=== PATIENT | male | born 1995 | race American Indian/Alaskan Native ===

== ENCOUNTER 2019-03-31 14:34 | Emergency (ER) | payer BC ==
[2019-03-31 14:47] VITALS: BP 161/101
[2019-03-31] MEDS ORDERED: ACETAMINOPHEN 500 MG TAB PO ONE (18:48)
[2019-03-31] MEDS ORDERED: IBUPROFEN 600 MG TAB PO ONE (18:48)
[2019-03-31] MEDS ORDERED: ONDANSETRON 4 MG/2 ML INJ IV ONE (18:48)
[2019-03-31] MEDS ORDERED: IPRATROPIUM/ALBUTEROL SULFATE 3 ML AMPUL.NEB IH ONE (18:48)
[2019-03-31] MEDS ORDERED: methylPREDNISolone Sod Succinate 125 MG/2 ML INJ IV ONE (18:48)
[2019-03-31] MEDS ORDERED: SODIUM CHLORIDE 0.9% 1000 ML 1,000 ML IV ONE (18:49)
[2019-03-31 19:30] LABS: Basophils # (Auto) 0.1 K/mm3 (0.0-0.1); Basophils % (Auto) 1.2 % (0.0-1.8); Eosinophils # (Auto) 0.4 K/mm3 (0.0-0.4); Eosinophils % (Auto) 5.2 % (0.0-4.3); Hematocrit 47.5 % (35.5-45.6); Lymphocytes # (Auto) 2.1 K/mm3 (1.2-5.4); Lymphocytes % (Auto) 24.7 % (13.4-35.0); Mean Corpuscular HGB Conc 34 % (32-34); Mean Corpuscular Volume 86 fl (84-94); Monocytes # (Auto) 0.8 K/mm3 (0.0-0.8); Monocytes % (Auto) 9.3 % (0.0-7.3); Platelet Count 235 K/mm3 (140-440); Red Cell Distribution Width 13.5 % (13.2-15.2)
[2019-03-31 19:53] LABS: Alanine Aminotransferase 20 units/L (7-56); BUN/Creatinine Ratio 10; Blood Urea Nitrogen 9 mg/dL (9-20); Calcium 9.1 mg/dL (8.4-10.2); Hemolysis Index 17
--- NOTE | 2019-03-31 19:55 | XRay Report ---
CHEST 2 VIEWS INDICATION / CLINICAL INFORMATION: cough, fever. COMPARISON: None available. FINDINGS: SUPPORT DEVICES: None. HEART / MEDIASTINUM: No significant abnormality. LUNGS / PLEURA: No significant pulmonary or pleural abnormality. No pneumothorax. ADDITIONAL FINDINGS: No significant additional findings. IMPRESSION: 1. No acute findings. Signer Name: Korey Machado MD Signed: 03/31/2019 7:51 PM Workstation Name: [id number]
--- NOTE | 2019-03-31 21:39 | Emergency Department Report ---
- General Chief Complaint: Upper Respiratory Infection Stated Complaint: SOB Source: patient Mode of arrival: Ambulatory Limitations: No Limitations - History of Present Illness Initial Comments: Patient is a 24-year-old male with no past medical history who presents to the ED record. Of acute onset persistent nasal and sinus congestion, frontal sinus pressure, headache, dizziness, lightheadedness, nausea, vomiting and dry cough for the last 2 days. Patient also complains of severely diffuse body aches and pains and lack of appetite. Patient states that he tried to take [id number] medications with no relief. Patient denies chest pain, shortness of breath, abdominal pain, diarrhea, dizziness, dysuria, testicular pain, syncope, seizures, change in vision or palpitations. Patient states that no one else at home also had similar symptoms. MD Complaint: fever, cough, sore throat, rhinorrhea, nasal congestion, sinus pain -: Sudden, days(s) (4) Severity: severe Severity scale (0 -10): 7 Quality: sharp, aching Consistency: constant Improves With: nothing Worsens With: nothing Associated Symptoms: denies other symptoms, fever, chills, myalgias, headache, rhinorrhea, nasal congestion, sore throat, cough, nausea, vomiting. denies: chest pain, shortness of breath, abdominal pain, diarrhea, dysuria, rash, right sweats, weight loss, hoarseness Treatments Prior to Arrival: none - Related Data Previous Rx's Medication Instructions Recorded Last Taken Type methylPREDNISolone [Medrol] 4 mg PO QAM #1 tab.ds.pk 03/23/18 Unknown Rx Dicyclomine [Bentyl] 10 mg PO QID PRN #40 capsule 01/13/19 Unknown Rx Naproxen 500 mg PO BID PRN #30 tablet 01/13/19 Unknown Rx Ondansetron [Zofran Odt] 4 mg PO Q8HR PRN #12 tab.rapdis 01/13/19 Unknown Rx Amoxicillin/Potassium Clav 1 each PO Q12H #20 tablet 03/31/19 Unknown Rx [Augmentin 875-125 Tablet] Benzonatate [Tessalon Perles] 100 mg PO Q8HR #30 capsule 03/31/19 Unknown Rx Cetirizine HCl [Zyrtec 10mg tab] 10 mg PO DAILY #30 tablet 03/31/19 Unknown Rx Ibuprofen [Motrin] 800 mg PO Q8HR PRN #20 tablet 03/31/19 Unknown Rx Ondansetron [Zofran Odt] 4 mg PO Q6HR PRN #15 tab.rapdis 03/31/19 Unknown Rx methylPREDNISolone [Medrol 4MG 4 mg PO DAILY #21 tab.ds.pk 03/31/19 Unknown Rx DOSEPAK (21 tabs)] Allergies Allergy/AdvReac Type Severity Reaction Status Date / Time No Known Allergies Allergy Unverified 10/09/15 12:38 ED Review of Systems ROS: Stated complaint: SOB Other details as noted in HPI Constitutional: chills, fever, malaise Eyes: denies: eye pain, eye discharge, vision change ENT: congestion, other (sinus pressure and headache). denies: ear pain, throat pain Respiratory: cough, wheezing. denies: shortness of breath Cardiovascular: denies: chest pain, palpitations Endocrine: no symptoms reported Gastrointestinal: nausea, vomiting. denies: abdominal pain, diarrhea, hematemesis, hematochezia Genitourinary: denies: urgency, dysuria Musculoskeletal: back pain, arthralgia, myalgia. denies: joint swelling Skin: denies: rash, lesions Neurological: headache. denies: weakness, paresthesias Psychiatric: denies: anxiety, depression Hematological/Lymphatic: denies: easy bleeding, easy bruising ED Past Medical Hx - Past Medical History Previous Medical History?: No - Surgical History Past Surgical History?: Yes Additional Surgical History: stomach surgery as an infant - Social History Smoking Status: Current Every Day Smoker Substance Use Type: None - Medications Home Medications: Home Medications Medication Instructions Recorded Confirmed Last Taken Type methylPREDNISolone [Medrol] 4 mg PO QAM #1 tab.ds.pk 03/23/18 Unknown Rx Dicyclomine [Bentyl] 10 mg PO QID PRN #40 capsule 01/13/19 Unknown Rx Naproxen 500 mg PO BID PRN #30 tablet 01/13/19 Unknown Rx Ondansetron [Zofran Odt] 4 mg PO Q8HR PRN #12 tab.rapdis 01/13/19 Unknown Rx Amoxicillin/Potassium Clav 1 each PO Q12H #20 tablet 03/31/19 Unknown Rx [Augmentin 875-125 Tablet] Benzonatate [Tessalon Perles] 100 mg PO Q8HR #30 capsule 03/31/19 Unknown Rx Cetirizine HCl [Zyrtec 10mg tab] 10 mg PO DAILY #30 tablet 03/31/19 Unknown Rx Ibuprofen [Motrin] 800 mg PO Q8HR PRN #20 tablet 03/31/19 Unknown Rx Ondansetron [Zofran Odt] 4 mg PO Q6HR PRN #15 tab.rapdis 03/31/19 Unknown Rx methylPREDNISolone [Medrol 4MG 4 mg PO DAILY #21 tab.ds.pk 03/31/19 Unknown Rx DOSEPAK (21 tabs)] ED Physical Exam - General Limitations: No Limitations General appearance: alert, in no apparent distress - Head Head exam: Present: atraumatic, normocephalic, normal inspection - Eye Eye exam: Present: normal appearance, PERRL, EOMI Pupils: Present: normal accommodation - ENT ENT exam: Present: normal orophraynx, mucous membranes moist, TM's normal bilaterally, normal external ear exam, other (grossly congested nasal passages; palpable severe frontal sinus tenderness) - Neck Neck exam: Present: normal inspection, full ROM, lymphadenopathy - Respiratory Respiratory exam: Present: normal lung sounds bilaterally, wheezes (mildly diffuse coarse wheezes throughout). Absent: respiratory distress, rales, rhonchi, chest wall tenderness, accessory muscle use, decreased breath sounds, prolonged expiratory - Cardiovascular Cardiovascular Exam: Present: normal rhythm, tachycardia, normal heart sounds. Absent: systolic murmur, diastolic murmur, rubs, gallop - GI/Abdominal GI/Abdominal exam: Present: soft, normal bowel sounds. Absent: tenderness, guarding, rebound, hyperactive bowel sounds, hypoactive bowel sounds - Extremities Exam Extremities exam: Present: normal inspection, full ROM, normal capillary refill - Back Exam Back exam: Present: normal inspection, full ROM. Absent: muscle spasm, paraspinal tenderness - Neurological Exam Neurological exam: Present: alert, oriented X3, CN II-XII intact, normal gait, reflexes normal - Psychiatric Psychiatric exam: Present: normal affect, normal mood - Skin Skin exam: Present: warm, dry, intact, normal color. Absent: rash ED Course Vital Signs 03/31/19 03/31/19 03/31/19 14:45 19:35 19:36 Temperature 99 F Pulse Rate 117 H Respiratory 20 18 18 Rate Blood Pressure 161/101 O2 Sat by Pulse 93 Oximetry ED Medical Decision Making - Lab Data Result diagrams: 03/31/19 19:18 03/31/19 19:18 - Radiology Data Radiology results: report reviewed, image reviewed Chest x-ray shows no acute cardiopulmonary abnormalities or pneumonitis. - Medical Decision Making This is a 24-year-old male who presented to the ED with complaint of acute onset persistent nasal and sinus congestion, frontal sinus pressure and headache, some fairly diffuse body aches and pains, dry cough with nausea and vomiting for the last 2 days. In the ED, patient is alert and oriented 3 and is not in distress. Chest x-ray shows no acute cardiopulmonary abnormalities or pneumonitis. Lab test results were reviewed and are all nonactionable including rapid influenza tests. Patient was treated for pain, also treated for nausea and vomiting and also received DuoNeb treatment as well as Solu-Medrol. On reevaluation, patient felt better, walking around in the ED and asking to be discharged home now that he is feeling better. Patient was discharged home on medications and advised to follow-up with his primary care physician in 5-7 days for reevaluation or return to the ED immediately if symptoms get worse. - Differential Diagnosis Sinusitis; bronchitis; URI; Flu; Pneumonia Critical care attestation.: If time is entered above; I have spent that time in minutes in the direct care of this critically ill patient, excluding procedure time. ED Disposition Clinical Impression: Acute upper respiratory infection, Nausea and vomiting in adult Acute frontal sinusitis Qualifiers: Recurrence: non-recurrent Qualified Code(s): J01.10 - Acute frontal sinusitis, unspecified Acute bronchitis Qualifiers: Bronchitis organism: other organism Qualified Code(s): J20.8 - Acute bronchitis due to other specified organisms Disposition: DC-01 TO HOME OR SELFCARE Is pt being admited?: No Does the pt Need Aspirin: No Condition: Stable Instructions: Acute Bronchitis (ED), Acute Bacterial Rhinosinusitis (ED), Upper Respiratory Infection (ED), Acute Nausea and Vomiting (ED) Additional Instructions: Take medications with food, drink plenty of fluids and follow-up with her primary care physician in 5-7 days for reevaluation. Return to ED immediately if symptoms get worse. Prescriptions: Amoxicillin/Potassium Clav [Augmentin 875-125 Tablet] 1 each PO Q12H #20 tablet methylPREDNISolone [Medrol 4MG DOSEPAK (21 tabs)] 4 mg PO DAILY #21 tab.ds.pk Ibuprofen [Motrin] 800 mg PO Q8HR PRN #20 tablet PRN Reason: Pain , Severe (7-10) Benzonatate [Tessalon Perles] 100 mg PO Q8HR #30 capsule Ondansetron [Zofran Odt] 4 mg PO Q6HR PRN #15 tab.rapdis PRN Reason: Nausea Cetirizine HCl [Zyrtec 10mg tab] 10 mg PO DAILY #30 tablet Referrals: TIERA ONTIVEROS MD [Staff Physician] - 7-10 days Forms: Work/School Release Form(ED) Time of Disposition: 21:36 Print Language: MALTESE
== END 2019-03-31 21:50 | disposition home or self-care (01) ==
LOC: ED 14:34
DX: J06.9 Acute upper respiratory infection, unspecified (principal); R11.2 Nausea with vomiting, unspecified; J01.10 Acute frontal sinusitis, unspecified; J20.9 Acute bronchitis, unspecified; F17.200 Nicotine dependence, unspecified, uncomplicated; Z98.890 Other specified postprocedural states; Z79.1 Long term (current) use of non-steroidal anti-inflammatories (NSAID); Z79.2 Long term (current) use of antibiotics; Z79.899 Other long term (current) drug therapy
CPT/HCPCS: 36415; 71046; 80053; 85025; 87400; 94640; 96361; 96374; 96375; 99284; J2405; J2930; J7030

== ENCOUNTER 2019-08-29 21:54 | Emergency (ER) | payer BC, OTHER ==
[2019-08-29 22:23] LABS: Bilirubin,Urine NEG (Negative); Blood,Urine NEG (Negative); Color,Urine Yellow (Yellow); Mucus,Urine FEW /HPF; Protein,Urine <15 mg/dL mg/dL (Negative); Urobilinogen,Urine < 2.0 mg/dL (<2.0); WBC,Urine < 1.0 /HPF (0.0-6.0)
[2019-08-30] MEDS ORDERED: predniSONE 20 MG TAB PO ONE (01:25)
[2019-08-30] MEDS ORDERED: ACETAMINOPHEN 500 MG TAB PO ONE (01:25)
--- NOTE | 2019-08-30 02:00 | Emergency Department Report ---
ED Extremity Problem HPI - General Chief complaint: Urogenital-Male Stated complaint: GENITAL ITCHING Source: patient Mode of arrival: Ambulatory Limitations: No Limitations - History of Present Illness Initial comments: Patient is a 24-year-old -[place] male with no past medical history who presented to the ED with complaint of acute onset persistent severe left should er pain that radiates diffusely to the left for the last 2 weeks. 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 Patient also complains of itchy painful rash in the left inguinal area for the last 4 days. Patient denies fever, chills, nausea, vomiting, testicular pain, traumatic injury, fall, neck pain, chest pain, shortness of breath, abdominal pain, low back pain, numbness and tingling or weakness of left arm. MD Complaint: extremity pain (left shoulder and arm pain), other (right groin itchy rash) -: Sudden, week(s) (2) Location: left, upper extremity (shoulder and arm) History of Same: No -: Yes arthralgia, No fever, No associated dyspnea Severity scale (0 -10): 5 Quality: aching, sharp Consistency: constant Improves with: nothing Worsens with: weight bearing, exertion, palpation Associated Symptoms: denies other symptoms, arthralgias. denies: chest pain, shortness of breath, fever, myalgias, rash - Related Data Previous Rx's Medication Instructions Recorded Last Taken Type methylPREDNISolone [Medrol] 4 mg PO QAM #1 tab.ds.pk 03/23/18 Unknown Rx Dicyclomine [Bentyl] 10 mg PO QID PRN #40 capsule 01/13/19 Unknown Rx Ondansetron [Zofran Odt] 4 mg PO Q8HR PRN #12 tab.rapdis 01/13/19 Unknown Rx Amoxicillin/Potassium Clav 1 each PO Q12H #20 tablet 03/31/19 Unknown Rx [Augmentin 875-125 Tablet] Benzonatate [Tessalon Perles] 100 mg PO Q8HR #30 capsule 03/31/19 Unknown Rx Cetirizine HCl [Zyrtec 10mg tab] 10 mg PO DAILY #30 tablet 03/31/19 Unknown Rx Ibuprofen [Motrin] 800 mg PO Q8HR PRN #20 tablet 03/31/19 Unknown Rx Ondansetron [Zofran Odt] 4 mg PO Q6HR PRN #15 tab.rapdis 03/31/19 Unknown Rx methylPREDNISolone [Medrol 4MG 4 mg PO DAILY #21 tab.ds.pk 03/31/19 Unknown Rx DOSEPAK (21 tabs)] Naproxen 500 mg PO BID PRN #30 tablet 08/30/19 Unknown Rx Terbinafine HCl [Lamisil At 1% 10 applic TP BID #1 tube 08/30/19 Unknown Rx CREAM] cephALEXin [Keflex] 500 mg PO Q8HR #30 cap 08/30/19 Unknown Rx predniSONE [Deltasone] 40 mg PO QDAY #10 tab 08/30/19 Unknown Rx Allergies Allergy/AdvReac Type Severity Reaction Status Date / Time No Known Allergies Allergy Unverified 10/09/15 12:38 ED Review of Systems ROS: Stated complaint: GENITAL ITCHING Other details as noted in HPI Constitutional: denies: chills, fever Eyes: denies: eye pain, eye discharge, vision change ENT: denies: ear pain, throat pain Respiratory: denies: cough, shortness of breath, wheezing Cardiovascular: denies: chest pain, palpitations Endocrine: no symptoms reported Gastrointestinal: denies: abdominal pain, nausea, diarrhea Genitourinary: denies: urgency, dysuria Musculoskeletal: arthralgia (Right shoulder and arm pain). denies: back pain, joint swelling Skin: rash (Painful itchy bleeding rash in the right inguinal area). denies: lesions Neurological: denies: headache, weakness, paresthesias Psychiatric: denies: anxiety, depression Hematological/Lymphatic: denies: easy bleeding, easy bruising ED Past Medical Hx - Past Medical History Previous Medical History?: No - Surgical History Past Surgical History?: No Additional Surgical History: stomach surgery as an - Social History Smoking Status: Current Every Day Smoker Substance Use Type: None - Medications Home Medications: Home Medications Medication Instructions Recorded Confirmed Last Taken Type methylPREDNISolone [Medrol] 4 mg PO QAM #1 tab.ds.pk 03/23/18 Unknown Rx Dicyclomine [Bentyl] 10 mg PO QID PRN #40 capsule 01/13/19 Unknown Rx Ondansetron [Zofran Odt] 4 mg PO Q8HR PRN #12 tab.rapdis 01/13/19 Unknown Rx Amoxicillin/Potassium Clav 1 each PO Q12H #20 tablet 03/31/19 Unknown Rx [Augmentin 875-125 Tablet] Benzonatate [Tessalon Perles] 100 mg PO Q8HR #30 capsule 03/31/19 Unknown Rx Cetirizine HCl [Zyrtec 10mg tab] 10 mg PO DAILY #30 tablet 03/31/19 Unknown Rx Ibuprofen [Motrin] 800 mg PO Q8HR PRN #20 tablet 03/31/19 Unknown Rx Ondansetron [Zofran Odt] 4 mg PO Q6HR PRN #15 tab.rapdis 03/31/19 Unknown Rx methylPREDNISolone [Medrol 4MG 4 mg PO DAILY #21 tab.ds.pk 03/31/19 Unknown Rx DOSEPAK (21 tabs)] Naproxen 500 mg PO BID PRN #30 tablet 08/30/19 Unknown Rx Terbinafine HCl [Lamisil At 1% 10 applic TP BID #1 tube 08/30/19 Unknown Rx CREAM] cephALEXin [Keflex] 500 mg PO Q8HR #30 cap 08/30/19 Unknown Rx predniSONE [Deltasone] 40 mg PO QDAY #10 tab 08/30/19 Unknown Rx ED Physical Exam - General Limitations: No Limitations General appearance: alert, in no apparent distress - Head Head exam: Present: atraumatic, normocephalic, normal inspection - Eye Eye exam: Present: normal appearance, PERRL, EOMI Pupils: Present: normal accommodation - ENT ENT exam: Present: normal exam, normal orophraynx, mucous membranes moist, TM's normal bilaterally, normal external ear exam - Neck Neck exam: Present: normal inspection, full ROM. Absent: tenderness - Respiratory Respiratory exam: Present: normal lung sounds bilaterally. Absent: respiratory distress, wheezes, rales, chest wall tenderness, accessory muscle use, decreased breath sounds - Cardiovascular Cardiovascular Exam: Present: regular rate, normal rhythm, normal heart sounds. Absent: systolic murmur, diastolic murmur, rubs, gallop - GI/Abdominal GI/Abdominal exam: Present: soft, normal bowel sounds. Absent: tenderness - Extremities Exam Extremities exam: Present: normal inspection, tenderness (Palpable left shoulder tenderness with limited range of motion due to pain), normal capillary refill. Absent: full ROM (Left shoulder limited range of motion due to reproducible pain) - Back Exam Back exam: Present: normal inspection, full ROM. Absent: tenderness, CVA tenderness (R), muscle spasm - Neurological Exam Neurological exam: Present: alert, oriented X3, CN II-XII intact, normal gait, reflexes normal - Psychiatric Psychiatric exam: Present: normal affect, normal mood - Skin Skin exam: Present: warm, dry, intact, normal color, rash (Mild erythematous dry scaly maculopapular rash on right inguinal area and right scrotum), erythema ED Course Vital Signs 08/29/19 22:00 Temperature 98.0 F Pulse Rate 98 H Respiratory 18 Rate Blood Pressure 178/108 O2 Sat by Pulse 96 Oximetry ED Medical Decision Making - Medical Decision Making This is a 24-year-old -[place] male with no past medical history who presented to the ED with complaint of acute onset persistent severe left shoulder pain that radiates diffusely to the left for the last 2 weeks. 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 Patient also complains of itchy painful rash in the left inguinal area for the last 4 days. In the ED, patient is alert and oriented x3 and is not in distress but appears to be in pain. Patient was treated for pain in the ED and discharged home on pain medications and was advised to follow-up with his primary care physician in 5 to 7 days for reevaluation. Patient requested for an STD testing but I advised the patient that the STD testing is not an emergency and therefore he needs to follow-up at the [facility] or [facility] health departments or any urgent care clinic for STD testing and treatment. Patient was advised to return to the ED immediately if symptoms get worse. - Differential Diagnosis Tendonitis; Muscle strain; Folliculitis; Tinea cruris Critical care attestation.: If time is entered above; I have spent that time in minutes in the direct care of this critically ill patient, excluding procedure time. ED Disposition Clinical Impression: Tendinitis of left shoulder, Tinea cruris, Acute folliculitis Muscle strain of left upper extremity Qualifiers: Encounter type: initial encounter Qualified Code(s): S46.912A - Strain of unspecified muscle, fascia and tendon at shoulder and upper arm level, left arm, initial encounter Disposition: DC-01 TO HOME OR SELFCARE Is pt being admited?: No Does the pt Need Aspirin: No Condition: Stable Instructions: Muscle Strain (ED), Folliculitis (ED), Jock Itch (ED), Tendinitis (ED) Additional Instructions: Take medication with food, drink plenty of fluids and follow-up with your primary care physician in 7 to 10 days for reevaluation. Return to the ED immediately if symptoms get worse. Prescriptions: predniSONE [Deltasone] 40 mg PO QDAY #10 tab cephALEXin [Keflex] 500 mg PO Q8HR #30 cap Terbinafine HCl [Lamisil At 1% CREAM] 10 applic TP BID #1 tube Naproxen 500 mg PO BID PRN #30 tablet PRN Reason: pain Referrals: [facility] [Provider Group] - 7-10 days Time of Disposition: 01:57 Print Language: BENGALI
== END 2019-08-30 02:17 | disposition home or self-care (01) ==
LOC: ED 21:54
DX: S46.912A Strain of unspecified muscle, fascia and tendon at shoulder and upper arm level, left arm, initial encounter (principal); M75.82 Other shoulder lesions, left shoulder; B35.6 Tinea cruris; L73.9 Follicular disorder, unspecified; F17.200 Nicotine dependence, unspecified, uncomplicated; Z98.890 Other specified postprocedural states; Z79.899 Other long term (current) drug therapy; X58.XXXA Exposure to other specified factors, initial encounter; Y93.89 Activity, other specified; Y92.89 Other specified places as the place of occurrence of the external cause; Y99.8 Other external cause status
CPT/HCPCS: 81001; 99283; J7512

== ENCOUNTER 2019-11-10 22:18 | Emergency (ER) | payer OTHER ==
--- NOTE | 2019-11-11 01:28 | Emergency Department Report ---
ED ENT HPI - General Chief complaint: Earache Stated complaint: HEARING LOSS LEFT EAR Time Seen by Provider: 11/11/19 00:07 Source: patient Mode of arrival: Ambulatory Limitations: No Limitations - History of Present Illness Initial comments: this 24-year-old male presents the ED complaining of = left ear pain and drainage x2 days. Patient states he woke up and noticed his left ear was draining and he was having pain from the ear. Patient states that he is also been having decreased hearing on the ear. Patient denies any trauma, recent swimming, recent illness, foreign object to the ear. He denies fever/chills/shortness of breath chest pain or any other symptoms. MD complaint: ear pain Location: L ear Severity: moderate Severity scale (0 -10): 7 Quality: aching Consistency: constant - Related Data Previous Rx's Medication Instructions Recorded Last Taken Type methylPREDNISolone [Medrol] 4 mg PO QAM #1 tab.ds.pk 03/23/18 Unknown Rx Dicyclomine [Bentyl] 10 mg PO QID PRN #40 capsule 01/13/19 Unknown Rx Ondansetron [Zofran Odt] 4 mg PO Q8HR PRN #12 tab.rapdis 01/13/19 Unknown Rx Benzonatate [Tessalon Perles] 100 mg PO Q8HR #30 capsule 03/31/19 Unknown Rx Cetirizine HCl [Zyrtec 10mg tab] 10 mg PO DAILY #30 tablet 03/31/19 Unknown Rx Ondansetron [Zofran Odt] 4 mg PO Q6HR PRN #15 tab.rapdis 03/31/19 Unknown Rx methylPREDNISolone [Medrol 4MG 4 mg PO DAILY #21 tab.ds.pk 03/31/19 Unknown Rx DOSEPAK (21 tabs)] Naproxen 500 mg PO BID PRN #30 tablet 08/30/19 Unknown Rx Terbinafine HCl [Lamisil At 1% 10 applic TP BID #1 tube 08/30/19 Unknown Rx CREAM] cephALEXin [Keflex] 500 mg PO Q8HR #30 cap 08/30/19 Unknown Rx predniSONE [Deltasone] 40 mg PO QDAY #10 tab 08/30/19 Unknown Rx Amoxicillin/Potassium Clav 1 each PO Q12H #20 tablet 11/11/19 Unknown Rx [Augmentin 875-125 Tablet] Ibuprofen [Motrin 800 MG tab] 800 mg PO Q8HR PRN #20 tablet 11/11/19 Unknown Rx Ofloxacin 0.3% [Floxin 0.3% Otic] 1 - 2 drops OT BID #1 bottle 11/11/19 Unknown Rx Allergies Allergy/AdvReac Type Severity Reaction Status Date / Time No Known Allergies Allergy Unverified 10/09/15 12:38 ED Dental HPI - General Chief complaint: Earache Stated complaint: HEARING LOSS LEFT EAR Time Seen by Provider: 11/11/19 00:07 Source: patient Mode of arrival: Ambulatory Limitations: No Limitations - Related Data Previous Rx's Medication Instructions Recorded Last Taken Type methylPREDNISolone [Medrol] 4 mg PO QAM #1 tab.ds.pk 03/23/18 Unknown Rx Dicyclomine [Bentyl] 10 mg PO QID PRN #40 capsule 01/13/19 Unknown Rx Ondansetron [Zofran Odt] 4 mg PO Q8HR PRN #12 tab.rapdis 01/13/19 Unknown Rx Benzonatate [Tessalon Perles] 100 mg PO Q8HR #30 capsule 03/31/19 Unknown Rx Cetirizine HCl [Zyrtec 10mg tab] 10 mg PO DAILY #30 tablet 03/31/19 Unknown Rx Ondansetron [Zofran Odt] 4 mg PO Q6HR PRN #15 tab.rapdis 03/31/19 Unknown Rx methylPREDNISolone [Medrol 4MG 4 mg PO DAILY #21 tab.ds.pk 03/31/19 Unknown Rx DOSEPAK (21 tabs)] Naproxen 500 mg PO BID PRN #30 tablet 08/30/19 Unknown Rx Terbinafine HCl [Lamisil At 1% 10 applic TP BID #1 tube 08/30/19 Unknown Rx CREAM] cephALEXin [Keflex] 500 mg PO Q8HR #30 cap 08/30/19 Unknown Rx predniSONE [Deltasone] 40 mg PO QDAY #10 tab 08/30/19 Unknown Rx Amoxicillin/Potassium Clav 1 each PO Q12H #20 tablet 11/11/19 Unknown Rx [Augmentin 875-125 Tablet] Ibuprofen [Motrin 800 MG tab] 800 mg PO Q8HR PRN #20 tablet 11/11/19 Unknown Rx Ofloxacin 0.3% [Floxin 0.3% Otic] 1 - 2 drops OT BID #1 bottle 11/11/19 Unknown Rx Allergies Allergy/AdvReac Type Severity Reaction Status Date / Time No Known Allergies Allergy Unverified 10/09/15 12:38 ED Review of Systems ROS: Stated complaint: HEARING LOSS LEFT EAR Other details as noted in HPI Comment: All other systems reviewed and negative ED Past Medical Hx - Past Medical History Previous Medical History?: No - Surgical History Past Surgical History?: No Additional Surgical History: stomach surgery as an infant - Social History Smoking Status: Current Every Day Smoker Substance Use Type: None - Medications Home Medications: Home Medications Medication Instructions Recorded Confirmed Last Taken Type methylPREDNISolone [Medrol] 4 mg PO QAM #1 tab.ds.pk 03/23/18 Unknown Rx Dicyclomine [Bentyl] 10 mg PO QID PRN #40 capsule 01/13/19 Unknown Rx Ondansetron [Zofran Odt] 4 mg PO Q8HR PRN #12 tab.rapdis 01/13/19 Unknown Rx Benzonatate [Tessalon Perles] 100 mg PO Q8HR #30 capsule 03/31/19 Unknown Rx Cetirizine HCl [Zyrtec 10mg tab] 10 mg PO DAILY #30 tablet 03/31/19 Unknown Rx Ondansetron [Zofran Odt] 4 mg PO Q6HR PRN #15 tab.rapdis 03/31/19 Unknown Rx methylPREDNISolone [Medrol 4MG 4 mg PO DAILY #21 tab.ds.pk 03/31/19 Unknown Rx DOSEPAK (21 tabs)] Naproxen 500 mg PO BID PRN #30 tablet 08/30/19 Unknown Rx Terbinafine HCl [Lamisil At 1% 10 applic TP BID #1 tube 08/30/19 Unknown Rx CREAM] cephALEXin [Keflex] 500 mg PO Q8HR #30 cap 08/30/19 Unknown Rx predniSONE [Deltasone] 40 mg PO QDAY #10 tab 08/30/19 Unknown Rx Amoxicillin/Potassium Clav 1 each PO Q12H #20 tablet 11/11/19 Unknown Rx [Augmentin 875-125 Tablet] Ibuprofen [Motrin 800 MG tab] 800 mg PO Q8HR PRN #20 tablet 11/11/19 Unknown Rx Ofloxacin 0.3% [Floxin 0.3% Otic] 1 - 2 drops OT BID #1 bottle 11/11/19 Unknown Rx ED Physical Exam - General Limitations: No Limitations General appearance: alert, in no apparent distress - Head Head exam: Present: atraumatic, normocephalic - Eye Eye exam: Present: normal appearance - ENT ENT exam: Present: mucous membranes moist - Expanded ENT Exam Expanded TM/Canal exam: Erythema: Left TM, Bulging: Left TM, Effusion: Left TM, Canal Discharge: Left TM, Canal Tenderness: Left TM Mouth exam: Present: normal external inspection Teeth exam: Present: normal inspection Throat exam: Positive: normal inspection - Neck Neck exam: Present: normal inspection - Respiratory Respiratory exam: Present: normal lung sounds bilaterally. Absent: respiratory distress - Cardiovascular Cardiovascular Exam: Present: regular rate, normal rhythm. Absent: systolic murmur, diastolic murmur, rubs, gallop - GI/Abdominal GI/Abdominal exam: Present: soft, normal bowel sounds - Rectal Rectal exam: Present: deferred - Extremities Exam Extremities exam: Present: normal inspection - Back Exam Back exam: Present: normal inspection - Neurological Exam Neurological exam: Present: alert, oriented X3 - Psychiatric Psychiatric exam: Present: normal affect, normal mood - Skin Skin exam: Present: warm, dry, intact, normal color. Absent: rash ED Course Vital Signs 11/10/19 22:27 Temperature 98.2 F Pulse Rate 72 Respiratory 18 Rate Blood Pressure 158/85 O2 Sat by Pulse 98 Oximetry ED Medical Decision Making - Medical Decision Making 24-year-old male presented with otitis media/otitis media and externa ED course: . I discussed all findings with the patient r. I discussed with the patient to take antibiotics as prescribed. I discussed to continue hydrating . I discussed follow-up with the primary care doctor There was no fever in the ED Vital signs are normalized, patient is in no acute distress or respiratory distress. Patient had an uneventful ED stay Critical care attestation.: If time is entered above; I have spent that time in minutes in the direct care of this critically ill patient, excluding procedure time. ED Disposition Clinical Impression: Otitis media Qualifiers: Otitis media type: suppurative Chronicity: acute Laterality: left Spontaneous tympanic membrane rupture: without spontaneous rupture Otitis externa Qualifiers: Otitis externa type: unspecified type Chronicity: acute Laterality: left Qualified Code(s): H60.502 - Unspecified acute noninfective otitis externa, left ear Disposition: DC- TO HOME OR SELFCARE Is pt being admited?: No Does the pt Need Aspirin: No Condition: Stable Instructions: Otitis Media (ED), Otitis Externa (ED) Additional Instructions: Make sure to follow up with the primary care physician as discussed. Take all your medications as you've been prescribed. If you have any worsening symptoms or develop new symptoms please return to ED immediately. Prescriptions: Amoxicillin/Potassium Clav [Augmentin 875-125 Tablet] 1 each PO Q12H #20 tablet Ofloxacin 0.3% [Floxin 0.3% Otic] 1 - 2 drops OT BID #1 bottle Ibuprofen [Motrin 800 MG tab] 800 mg PO Q8HR PRN #20 tablet PRN Reason: Pain , Severe (7-10) Referrals: PRIMARY CARE,MD [Primary Care Provider] - 3-5 Days [facility] [Outside] - 3-5 Days [facility] [Outside] - 3-5 Days Forms: Work/School Release Form(ED) Time of Disposition: 01:31
[2019-11-11 01:54] VITALS: BP 142/78
== END 2019-11-11 01:53 | disposition home or self-care (01) ==
LOC: ED 22:18
DX: H66.92 Otitis media, unspecified, left ear (principal); H60.92 Unspecified otitis externa, left ear; F17.200 Nicotine dependence, unspecified, uncomplicated; Z98.890 Other specified postprocedural states; Z79.4 Long term (current) use of insulin; Z79.899 Other long term (current) drug therapy
CPT/HCPCS: 99282

== ENCOUNTER 2019-12-16 12:34 | Emergency (ER) | payer OTHER ==
--- NOTE | 2019-12-16 16:24 | Emergency Department Report ---
Minor Respiratory - HPI Chief Complaint: Upper Respiratory Infection Stated Complaint: KATELYNN/MUCUS Time Seen by Provider: 12/16/19 16:13 Duration: one week Severity: mild Minor Respiratory: Yes Able to Tolerate Fluids, Yes Cough, No Rhinorrhea, No Sore Throat, No Ear Pain, No Sick Contacts, No Hemoptysis, No Chest Pain, No Shortness of Breath, No Fever Other History: CC: "I have mucus in my chest.". HPI: This is a 24 yo male with hx of nicotine dependence who presents with productive cough for the past one week. He has a headache with the cough. Otherwise he is pain-free. He denies chest pain. He denies fever. He denied sore throat. He has had recent negative COVID-19 test. Only mild symptoms. ED Review of Systems ROS: Stated complaint: KATELYNN/MUCUS Other details as noted in HPI Comment: All other systems reviewed and negative Constitutional: denies: chills, fever, malaise Respiratory: cough. denies: shortness of breath, wheezing Cardiovascular: denies: chest pain Gastrointestinal: denies: abdominal pain, nausea, vomiting Neurological: headache ED Past Medical Hx - Past Medical History Previous Medical History?: No - Surgical History Additional Surgical History: stomach surgery as an infant - Social History Smoking Status: Current Every Day Smoker - Medications Home Medications: Home Medications Medication Instructions Recorded Confirmed Last Taken Type methylPREDNISolone [Medrol] 4 mg PO QAM #1 tab.ds.pk 03/23/18 Unknown Rx Dicyclomine [Bentyl] 10 mg PO QID PRN #40 capsule 01/13/19 Unknown Rx Ondansetron [Zofran Odt] 4 mg PO Q8HR PRN #12 tab.rapdis 01/13/19 Unknown Rx Benzonatate [Tessalon Perles] 100 mg PO Q8HR #30 capsule 03/31/19 Unknown Rx Cetirizine HCl [Zyrtec 10mg tab] 10 mg PO DAILY #30 tablet 03/31/19 Unknown Rx Ondansetron [Zofran Odt] 4 mg PO Q6HR PRN #15 tab.rapdis 03/31/19 Unknown Rx methylPREDNISolone [Medrol 4MG 4 mg PO DAILY #21 tab.ds.pk 03/31/19 Unknown Rx DOSEPAK (21 tabs)] Naproxen 500 mg PO BID PRN #30 tablet 08/30/19 Unknown Rx Terbinafine HCl [Lamisil At 1% 10 applic TP BID #1 tube 08/30/19 Unknown Rx CREAM] cephALEXin [Keflex] 500 mg PO Q8HR #30 cap 08/30/19 Unknown Rx predniSONE [Deltasone] 40 mg PO QDAY #10 tab 08/30/19 Unknown Rx Amoxicillin/Potassium Clav 1 each PO Q12H #20 tablet 11/11/19 Unknown Rx [Augmentin 875-125 Tablet] Ibuprofen [Motrin 800 MG tab] 800 mg PO Q8HR PRN #20 tablet 11/11/19 Unknown Rx Ofloxacin 0.3% [Floxin 0.3% Otic] 1 - 2 drops OT BID #1 bottle 11/11/19 Unknown Rx Minor Respiratory Exam - Exam General: Vital signs noted. No distress. Alert and acting appropriately. Well-appearing, jovial, smiling, pleasant. No acute distress. Speaking full word sentences. Appears comfortable. HEENT: Yes Moist Mucous Membranes, No Pharyngeal Erythema, No Pharyngeal Exudates, No Rhinorrhea, No Conjuctival Injection Neck: Yes Supple, No Adenopathy Lungs: Yes Good Air Exchange, No Wheezes, No Ronchi, No Stridor, No Cough, No Labored Respirations, No Retractions, No Use of Accessory Muscles, No Other Abnormal Lung Sounds Heart: Yes Regular, No Murmur Abdomen: Yes Normal Bowel Sounds, No Tenderness, No Peritoneal Signs Skin: No Rash, No Edema Neurologic: Alert and oriented, no deficits. Musculoskeletal: Unremarkable. ED Course Vital Signs 12/16/19 13:05 Temperature 98.0 F Pulse Rate 105 H Respiratory 18 Rate Blood Pressure 154/101 O2 Sat by Pulse 98 Oximetry ED Medical Decision Making - Medical Decision Making Acute bronchitis: Antibiotics are indicated due to tobacco use. Strongly recommended smoking cessation. Patient prescribed doxycycline. Critical care attestation.: If time is entered above; I have spent that time in minutes in the direct care of this critically ill patient, excluding procedure time. ED Disposition Clinical Impression: Acute bronchitis, Tobacco dependence Disposition: -01 TO HOME OR SELFCARE Is pt being admited?: No Does the pt Need Aspirin: No Condition: Stable Instructions: How to Stop Smoking (ED) Referrals: TIERA ONTIVEROS MD [Staff Physician] - 3-5 Days Forms: Work/School Release Form(ED)
[2019-12-16 17:19] VITALS: BP 156/92
== END 2019-12-16 17:02 | disposition home or self-care (01) ==
LOC: ED 12:34
DX: J20.9 Acute bronchitis, unspecified (principal); F17.200 Nicotine dependence, unspecified, uncomplicated; Z79.899 Other long term (current) drug therapy
CPT/HCPCS: 93005; 99282

== ENCOUNTER 2020-07-31 22:12 | Emergency (ER) | payer OTHER ==
[2020-07-31] MEDS ORDERED: ACETAMINOPHEN 500 MG TAB PO ONE (23:41)
[2020-07-31] MEDS ORDERED: ONDANSETRON 4 MG ODT TAB PO ONE (23:41)
[2020-07-31] MEDS ORDERED: predniSONE 20 MG TAB PO ONE (23:41)
[2020-07-31] MEDS ORDERED: ALBUTEROL 2.5 MG/3 ML NEBU IH ONE (23:42)
[2020-07-31] MEDS ORDERED: IPRATROPIUM/ALBUTEROL SULFATE 3 ML AMPUL.NEB IH ONE (23:42)
[2020-07-31 23:57] VITALS: BP 183/109
--- NOTE | 2020-08-01 00:19 | XRay Report ---
CHEST PA AND LATERAL VIEWS INDICATION: cough, wheezing. COMPARISON: None. FINDINGS: Support devices: None. Heart: Within normal limits. Lungs/Pleura: No acute pulmonary or pleural findings. IMPRESSION: 1. No acute findings. Signer Name: Michael Landa MD Signed: 08/01/2020 12:14 AM Workstation Name: [id number]
--- NOTE | 2020-08-01 01:01 | Emergency Department Report ---
- General Chief Complaint: Upper Respiratory Infection Stated Complaint: COUGH; SHORTNESS OF BREATH;CONGESTION Source: patient Mode of arrival: Ambulatory Limitations: No Limitations - History of Present Illness Initial Comments: Patient is a 25-year-old -[place] male with a history of chronic tobacco abuse who presents to the ED with complaint of acute onset persistent nasal and sinus congestion, frontal sinus pressure, frontal headache, persistent dry cough with intermittent wheezing, body aches and pains for the last 1 week, worse in the last 2 days. Patient also complains of intermittent nausea and vomiting with each coughing episode. Patient admits to continued tobacco abuse despite the symptoms. Patient states that he has been taking [id number] medications with no relief. Patient denies dizziness, syncope, chest pain, shortness of breath, abdominal pain, diarrhea, dysuria, urinary frequency and urgency or sore throat, fever and chills. MD Complaint: cough, rhinorrhea, nasal congestion, sinus pain -: Sudden, week(s) (1) Severity: moderate Severity scale (0 -10): 5 Quality: dull, aching Consistency: constant Improves With: nothing Worsens With: nothing Associated Symptoms: denies other symptoms, headache, rhinorrhea, nasal congestion, cough. denies: fever, chills, myalgias, diaphoresis, sore throat, stiff neck, chest pain, shortness of breath, abdominal pain, nausea, vomiting, diarrhea, dysuria, rash, right sweats, weight loss, epistaxis, hoarseness, ear pain, other Treatments Prior to Arrival: "cold medicine" - Related Data Previous Rx's Medication Instructions Recorded Last Taken Type methylPREDNISolone [Medrol] 4 mg PO QAM #1 tab.ds.pk 03/23/18 Unknown Rx Dicyclomine [Bentyl] 10 mg PO QID PRN #40 capsule 01/13/19 Unknown Rx Ondansetron [Zofran Odt] 4 mg PO Q8HR PRN #12 tab.rapdis 01/13/19 Unknown Rx Cetirizine HCl [Zyrtec 10mg tab] 10 mg PO DAILY #30 tablet 03/31/19 Unknown Rx Naproxen 500 mg PO BID PRN #30 tablet 08/30/19 Unknown Rx Terbinafine HCl [Lamisil At 1% 10 applic TP BID #1 tube 08/30/19 Unknown Rx CREAM] cephALEXin [Keflex] 500 mg PO Q8HR #30 cap 08/30/19 Unknown Rx predniSONE [Deltasone] 40 mg PO QDAY #10 tab 08/30/19 Unknown Rx Amoxicillin/Potassium Clav 1 each PO Q12H #20 tablet 11/11/19 Unknown Rx [Augmentin 875-125 Tablet] Ofloxacin 0.3% [Floxin 0.3% Otic] 1 - 2 drops OT BID #1 bottle 11/11/19 Unknown Rx Albuterol Sulfate [Proventil Hfa] 1 - 2 puff IH Q6H PRN #1 hfa.aer.ad 08/01/20 Unknown Rx Benzonatate [Tessalon Perles] 100 mg PO Q8HR #30 capsule 08/01/20 Unknown Rx Doxycycline Hyclate [Doxycycline 100 mg PO Q12HR 10 Days #20 tab 08/01/20 Unknown Rx Hyclate TAB] Ibuprofen [Motrin 800 MG tab] 800 mg PO Q8HR PRN #20 tablet 08/01/20 Unknown Rx Ondansetron [Zofran ODT TAB] 4 mg PO Q6HR PRN #15 tab.rapdis 08/01/20 Unknown Rx methylPREDNISolone [Medrol 4MG 4 mg PO DAILY #21 tab.ds.pk 08/01/20 Unknown Rx DOSEPAK (21 tabs)] Allergies Allergy/AdvReac Type Severity Reaction Status Date / Time No Known Allergies Allergy Unverified 10/09/15 12:38 ED Review of Systems ROS: Stated complaint: COUGH; SHORTNESS OF BREATH;CONGESTION Other details as noted in HPI Constitutional: denies: chills, fever Eyes: denies: eye pain, eye discharge, vision change ENT: congestion. denies: ear pain, throat pain Respiratory: cough, wheezing. denies: shortness of breath Cardiovascular: denies: chest pain, palpitations Endocrine: no symptoms reported Gastrointestinal: nausea, vomiting. denies: abdominal pain, diarrhea Genitourinary: denies: urgency, dysuria Musculoskeletal: denies: back pain, joint swelling, arthralgia Skin: denies: rash, lesions Neurological: headache. denies: weakness, paresthesias Psychiatric: denies: anxiety, depression Hematological/Lymphatic: denies: easy bleeding, easy bruising ED Past Medical Hx - Past Medical History Previous Medical History?: No - Surgical History Past Surgical History?: Yes Additional Surgical History: stomach surgery as an infant - Social History Smoking Status: Current Every Day Smoker - Medications Home Medications: Home Medications Medication Instructions Recorded Confirmed Last Taken Type methylPREDNISolone [Medrol] 4 mg PO QAM #1 tab.ds.pk 03/23/18 Unknown Rx Dicyclomine [Bentyl] 10 mg PO QID PRN #40 capsule 01/13/19 Unknown Rx Ondansetron [Zofran Odt] 4 mg PO Q8HR PRN #12 tab.rapdis 01/13/19 Unknown Rx Cetirizine HCl [Zyrtec 10mg tab] 10 mg PO DAILY #30 tablet 03/31/19 Unknown Rx Naproxen 500 mg PO BID PRN #30 tablet 08/30/19 Unknown Rx Terbinafine HCl [Lamisil At 1% 10 applic TP BID #1 tube 08/30/19 Unknown Rx CREAM] cephALEXin [Keflex] 500 mg PO Q8HR #30 cap 08/30/19 Unknown Rx predniSONE [Deltasone] 40 mg PO QDAY #10 tab 08/30/19 Unknown Rx Amoxicillin/Potassium Clav 1 each PO Q12H #20 tablet 11/11/19 Unknown Rx [Augmentin 875-125 Tablet] Ofloxacin 0.3% [Floxin 0.3% Otic] 1 - 2 drops OT BID #1 bottle 11/11/19 Unknown Rx Albuterol Sulfate [Proventil Hfa] 1 - 2 puff IH Q6H PRN #1 hfa.aer.ad 08/01/20 Unknown Rx Benzonatate [Tessalon Perles] 100 mg PO Q8HR #30 capsule 08/01/20 Unknown Rx Doxycycline Hyclate [Doxycycline 100 mg PO Q12HR 10 Days #20 tab 08/01/20 Unknown Rx Hyclate TAB] Ibuprofen [Motrin 800 MG tab] 800 mg PO Q8HR PRN #20 tablet 08/01/20 Unknown Rx Ondansetron [Zofran ODT TAB] 4 mg PO Q6HR PRN #15 tab.rapdis 08/01/20 Unknown Rx methylPREDNISolone [Medrol 4MG 4 mg PO DAILY #21 tab.ds.pk 08/01/20 Unknown Rx DOSEPAK (21 tabs)] ED Physical Exam - General Limitations: No Limitations General appearance: alert, in no apparent distress - Head Head exam: Present: atraumatic, normocephalic, normal inspection - Eye Eye exam: Present: normal appearance, PERRL, EOMI Pupils: Present: normal accommodation - ENT ENT exam: Present: normal orophraynx, mucous membranes moist, TM's normal bilaterally, normal external ear exam, other (Grossly congested nasal passages) - Neck Neck exam: Present: normal inspection, full ROM - Respiratory Respiratory exam: Present: wheezes (Mildly diffuse coarse wheezes throughout). Absent: respiratory distress, rales, rhonchi, stridor, chest wall tenderness, accessory muscle use, decreased breath sounds, prolonged expiratory - Cardiovascular Cardiovascular Exam: Present: normal rhythm, tachycardia, normal heart sounds. Absent: systolic murmur, diastolic murmur, rubs, gallop - GI/Abdominal GI/Abdominal exam: Present: soft, normal bowel sounds. Absent: tenderness, guarding, rebound, hyperactive bowel sounds, hypoactive bowel sounds, organomegaly, mass - Extremities Exam Extremities exam: Present: normal inspection, full ROM, normal capillary refill - Back Exam Back exam: Present: normal inspection, full ROM. Absent: tenderness, CVA tenderness (R), CVA tenderness (L), muscle spasm, paraspinal tenderness - Neurological Exam Neurological exam: Present: alert, oriented X3, CN II-XII intact, normal gait, reflexes normal - Psychiatric Psychiatric exam: Present: normal affect, normal mood - Skin Skin exam: Present: warm, dry, intact, normal color. Absent: rash ED Course Vital Signs 07/31/20 08/01/20 08/01/20 23:55 03:20 03:36 Temperature 98.5 F Pulse Rate 115 H Pulse Rate [ 102 H Bilateral Throughout] Respiratory 20 20 Rate Respiratory 18 Rate [Bilateral Throughout] Blood Pressure 183/109 [Right] O2 Sat by Pulse 96 Oximetry ED Medical Decision Making - Radiology Data Radiology results: report reviewed, image reviewed - Medical Decision Making This is a 25-year-old -[place] male with a history of chronic tobacco abuse who presents to the ED with complaint of acute onset persistent nasal and sinus congestion, frontal sinus pressure, frontal headache, persistent dry cough with intermittent wheezing, body aches and pains for the last 1 week, worse in the last 2 days. Patient also complains of intermittent nausea and vomiting with each coughing episode. Patient admits to continued tobacco abuse despite the symptoms. Patient states that he has been taking [id number] medications with no relief. In the ED, patient is alert and oriented x3 and is not in any distress but anxious, tachycardic but afebrile in triage. Chest x- ray shows no acute cardiopulmonary abnormalities or pneumonitis. Patient received oral prednisone in the ED, also treated for nausea and also received DuoNeb treatment with albuterol nebulizer in the ED. On reevaluation, patient symptoms improved significantly and the wheezing resolved. Patient is hemo dynamically stable, and tachycardia also resolved. Patient was discharged home on medications and advised to follow-up with his primary care physician in 5 to 7 days for reevaluation or return to the ED immediately if symptoms get worse. - Differential Diagnosis URI; bronchitis; pneumonia; sinusitis; Critical care attestation.: If time is entered above; I have spent that time in minutes in the direct care of this critically ill patient, excluding procedure time. ED Disposition Clinical Impression: Acute upper respiratory infection Acute bronchitis Qualifiers: Bronchitis organism: other organism Qualified Code(s): J20.8 - Acute bronchitis due to other specified organisms Acute frontal sinusitis Qualifiers: Recurrence: non-recurrent Qualified Code(s): J01.10 - Acute frontal sinusitis, unspecified Disposition: DC-01 TO HOME OR SELFCARE Is pt being admited?: No Does the pt Need Aspirin: No Condition: Stable Instructions: Cough, Adult, [id number], Acute Bronchitis, Adult, [id number], Upper Respiratory Infection, Adult, [id number], Acute Bronchitis (ED) Additional Instructions: Chest x-ray shows no acute cardiopulmonary abnormalities or pneumonitis. Therefore take medications with food, drink plenty of fluids and follow-up with your primary care physician in 5 to 7 days for reevaluation. Return to the ED immediately if symptoms get worse. Prescriptions: Doxycycline Hyclate [Doxycycline Hyclate TAB] 100 mg PO Q12HR 10 Days #20 tab methylPREDNISolone [Medrol 4MG DOSEPAK (21 tabs)] 4 mg PO DAILY #21 tab.ds.pk Ibuprofen [Motrin 800 MG tab] 800 mg PO Q8HR PRN #20 tablet PRN Reason: Pain , Severe (7-10) Albuterol Sulfate [Proventil Hfa] 1 - 2 puff IH Q6H PRN #1 hfa.aer.ad PRN Reason: Wheezing Benzonatate [Tessalon Perles] 100 mg PO Q8HR #30 capsule Ondansetron [Zofran ODT TAB] 4 mg PO Q6HR PRN #15 tab.rapdis PRN Reason: Nausea Referrals: [facility] [Provider Group] - 3-5 Days Forms: Work/School Release Form(ED) Time of Disposition: 01:01 Print Language: [place]
[2020-08-01] MEDS ORDERED: ALBUTEROL 2.5 MG/3 ML NEBU IH ONE (03:15)
[2020-08-01] MEDS ORDERED: ONDANSETRON 4 MG ODT TAB PO ONE (03:15)
[2020-08-01] MEDS ORDERED: ACETAMINOPHEN 500 MG TAB PO ONE (03:15)
[2020-08-01] MEDS ORDERED: predniSONE 20 MG TAB PO ONE (03:15)
[2020-08-01] MEDS ORDERED: IPRATROPIUM/ALBUTEROL SULFATE 3 ML AMPUL.NEB IH ONE (03:15)
== END 2020-08-01 03:38 | disposition home or self-care (01) ==
LOC: ED 22:12
DX: J01.10 Acute frontal sinusitis, unspecified (principal); J20.9 Acute bronchitis, unspecified; F17.200 Nicotine dependence, unspecified, uncomplicated; Z98.890 Other specified postprocedural states; Z79.1 Long term (current) use of non-steroidal anti-inflammatories (NSAID); Z79.2 Long term (current) use of antibiotics; Z79.899 Other long term (current) drug therapy
CPT/HCPCS: 71046; 94640; 99283; J7512; 94644; Q0162